=== PATIENT | female | born 1970 | race Caucasian/White ===

== ENCOUNTER 2017-02-04 08:57 | Emergency (ER) | payer OTHER ==
--- NOTE | ~2017-02-04 | HP ---
History And Physical [facility] [address] [facility] [address] [place]. [address] NAME: DANGELO GOLDSTEIN : 72 STATUS : ADM Bucky PAT#: [id number] AGE: 46 ADM/REG DATE : 02/04/17 MR#: [id number] REPORT SERV DATE: 02/04/17 DICTATED BY: ROBERT ANDINO DATE: 02/04/17 REPORT STATUS : Draft TRANSCRIBED BY: HILLARY DATE: 02/04/17 DATE OF ADMISSION: 02/04/2017 CHIEF COMPLAINT: Atypical chest pain. HISTORY OF PRESENT ILLNESS: A very pleasant 46-year-old white female with no known history of CAD, reports constant sharp midsternal chest discomfort worse with deep breath that radiates under her left breast, and at times into her left neck. She reports associated shortness of breath. She denies any nausea, diaphoresis, dizziness, or belching. At its most intense, the chest pain is rated a 10/10. At the time of interview in the ER, she rates it a 4/10. It improved after a GI cocktail, and is somewhat reproducible on exam. She states that this has been constant for three to four days. She denies any change in activity nothing that is exertional in nature. She states that she had [place] food for dinner last night, but these symptoms were present before eating dinner. When asked if there are any aggravating or confrontational stressful issues in her life, she reports that her 23-year-old daughter in [place], who is on drugs. She worries about continually. She is also raising her 3-year-old daughter. She is also raising another grandchild from a son, who at the age of 22 of a drug overdose. The patient denies any personal history of myocardial infarction, stroke, DVT, or pulmonary embolus. The patient denies any recent fever or chills, no palpitations, no syncopal episodes. Denies PND or orthopnea. PAST MEDICAL HISTORY: 1. Anxiety. 2. Denies hypertension, dyslipidemia, or diabetes. 3. Positive family history for early CAD. PAST SURGICAL HISTORY: Appendectomy and left shoulder surgery. SOCIAL HISTORY: She is single, raising one child. 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 Does not have a structured exercise routine. Denies tobacco or illicits. Consumes two glasses of wine per night. Father at the age of 37 of a heart attack. REVIEW OF SYSTEMS: A 14-point review of systems was performed, significant for HPI including two sets of coffee this morning at 0400 hours. Nitro paste removed from chest wall at 1100 hours. Otherwise complete review of systems was obtained and negative. ALLERGIES: NO KNOWN DRUG ALLERGIES. HOME MEDICATIONS: Lexapro 10 mg nightly, estradiol at bedtime, Nexium 20 mg daily, and Tums p.r.n. PHYSICAL EXAMINATION: BLOOD PRESSURE: 119/75, PULSE: 88, RESPIRATORY RATE: 16, TEMPERATURE: 98.1, O2 saturation History And Physical [address] [address] NAME: DANGELO GOLDSTEIN : 72 STATUS : ADM Bucky PAT#: [id number] AGE: 46 ADM/REG DATE : 02/04/17 MR#: [id number] REPORT SERV DATE: 02/04/17 DICTATED BY: ROBERT ANDINO DATE: 02/04/17 REPORT STATUS : Draft TRANSCRIBED BY: HILLARY DATE: 02/04/17 96% on room air. HEIGHT: 5 feet 10 inches. WEIGHT: 180 pounds. GENERAL: Cooperative, in no apparent distress. HEENT: Pupils 2 mm, sclera nonicteric. Nares patent. Moist mucous membranes. No xanthelasma. NECK: Trachea midline, no thyromegaly. No JVD. No bruits. LYMPH: No cervical lymphadenopathy. No supraclavicular lymphadenopathy. RESPIRATORY: Tender to palpation, left chest to left axilla. CARDIOVASCULAR: Regular rate. No murmur, rub or gallop appreciated. EXTREMITIES: Without edema. Pulses 2+ bilaterally. ABDOMEN: Soft, nontender, nondistended, normal bowel sounds auscultated throughout. No organomegaly. SKIN: Warm, dry extremities. No pallor, or cyanosis. PSYCHIATRIC: Appropriate affect. Alert, oriented x3. LABORATORY DATA: Troponin less than 0.02, second pending. Potassium 4.2, BUN 8, creatinine 0.81, glucose 95, and magnesium 1.8. WBC 10.4, hemoglobin 12.2, hematocrit 36.6, and platelet count 279,000. D-dimer 0.33. EKG, sinus rhythm. ASSESSMENT AND PLAN: 1. Atypical chest pain. Rule out myocardial infarction per protocol, serial enzymes and serial EKGs. If second troponin negative, proceed with exercise treadmill today. The patient will be discharged home if low risk, no ischemia. If anything suggestive of ischemia, Cardiology referral will be initiated. Otherwise, the patient will be asked to follow up with her PCP in one to two weeks with all studies being sent to that office. 2. Considerable family stress, raising two grandchildren from daughter who lives out of state and reportedly drug addicted and the patient lost one son from drug overdose. 3. Reproducible pleuritic chest pain. D-dimer of 0.33. Toradol 15 mg IV x1 given now. CAN/HILLARY DONY Lugo, CONSERVATION AGENT-BC / [id number] CC: DONY Lugo, CONSERVATION AGENT-BC Adolfo Cagle M.D.
[2017-02-04 08:54] LABS: BASOPHILS 0.2 %; BASOPHILS ABSOLUTE 0.02 10/3/uL (0.0-0.16); EOSINOPHILS 0.4 %; EOSINOPHILS ABSOLUTE 0.04 10/3/uL (0.0-0.53); HEMATOCRIT 36.6 % (36.0-48.0); HEMOGLOBIN 12.6 g/dL (12.0-16.0); IMMATURE GRANULOCYTES 0.3 %; IMMATURE GRANULOCYTES ABSOLUTE 0.03 10/3/uL (0.0-0.11); LYMPHOCYTES 28.8 %; LYMPHOCYTES ABSOLUTE 3.01 10/3/uL (0.67-4.30); MEAN CORPUS HGB CONC 34.4 g/dL (32.0-36.0); MEAN CORPUSCULAR HEMOGLOB 34.1 pg (26.0-34.0); MEAN CORPUSCULAR VOLUME 99.2 fL (80-100); MEAN PLATELET VOLUME 9.6 fL (9.2-13.0); MONOCYTES 8.3 %; MONOCYTES ABSOLUTE 0.87 10/3/uL (0.21-1.20); NEUTROPHILS ABSOLUTE 6.47 10/3/uL (2.02-8.40); PLATELET COUNT 279 10/3/uL (150-400); RBC DISTRIBUTION WIDTH 12.4 % (12.0-16.0); RED CELL COUNT 3.69 10/6/uL (4.0-5.6)
[2017-02-04 08:55] LABS: MANUAL DIFF NO %; WHITE BLOOD CELLS 10.4 10/3/uL (4.5-10.5)
[~2017-02-04 08:57] MED LIST: IBU400 PO; IBU800 PO; LEXAPRO10 PO; PCET PO
[2017-02-04 09:06] LABS: INTERNATIONAL NORMAL RATI 1.1 UNITS (-); PARTIAL THROMBO TIME 29.7 SEC (22.5-37.2); PROTIME (NOT ORD) 13.9 SEC (12.0-14.5)
[2017-02-04 09:12] LABS: BUN (BLOOD UREA NITROGEN) 8 MG/DL (6-23); CALCIUM, SERUM 8.5 MG/DL (8.5-10.4); CHEST PAIN PROFILE TAT 0 Hrs 23 Mins; CHLORIDE, SERUM 106 MMOL/L (96-112); CO2 (CARBON DIOXIDE) 27 MMOL/L (24-34); CREATININE 0.81 MG/DL (0.55-1.02); GFR AFRICAN AMERICAN 102 ML/MIN (>=60); GFR NON AFRICAN AMERICAN 88 ML/MIN (>=60); GLUCOSE, SERUM 95 MG/DL (60-99); POTASSIUM, SERUM 4.2 MMOL/L (3.5-5.3); SODIUM, SERUM 138 MMOL/L (135-148); TROPONIN I <0.02 NG/ML (<0.05)
[2017-02-04 10:20] LABS: D-DIMER QUANTITATIVE 0.33 ug/mLFEU (< 0.50)
[2017-02-04] MEDS ORDERED: LEXAPRO10 PO (11:03)
[2017-02-04] MEDS ORDERED: YAZ1 TAB PO (11:03)
[2017-02-04] MEDS ORDERED: TUMSROLL PO (11:04)
[2017-02-04] MEDS ORDERED: NEXIUM20 M1 PO (11:04)
== END 2017-02-04 15:38 | disposition home or self-care (01) ==
LOC: ER 08:57
PROVIDERS: Nurse Practitioner
DX: R07.89 Other chest pain (principal); F41.9 Anxiety disorder, unspecified; Z82.49 Family history of ischemic heart disease and other diseases of the circulatory system; Z90.49 Acquired absence of other specified parts of digestive tract; Z98.890 Other specified postprocedural states; Z79.899 Other long term (current) drug therapy
CPT/HCPCS: 71010; 80048; 83735; 84484; 85025; 85379; 85610; 85730; 93005; 93017; 96374; 96375; 99285; A9270-GY; G0378; J1885; J2405